=== PATIENT | female | born 1955 | race African-American/Black ===

== ENCOUNTER 2020-05-19 22:23 | Observation (INO) ==
[2020-05-19] MEDS ORDERED: EPINEPHrine 1 MG/ML VIAL IM ONE (22:39)
[2020-05-19] MEDS ORDERED: methylPREDNISolone 125 MG/2 ML VIAL IVP ONE (22:40)
[2020-05-19 23:01] LABS: Hematocrit 31.4 % (35.3-44.9); Hemoglobin 9.9 g/dL (11.5-15.4); Immature Granulocytes % 0.2 % (0-4); Lymphocytes % 48.1 %; Mean Corpuscular HGB Conc 31.5 g/dL (31.6-35.5); Mean Corpuscular Hemoglobin 29.9 pg (28.0-33.3); Mean Corpuscular Volume 94.9 fL (83.0-100.0); Mean Platelet Volume 10.4 fL (9.4-12.4); Platelet Count 153 K/mcL (140-400); Red Blood Count 3.31 M/mcL (3.82-4.97); Red Cell Distribution Width 13.2 % (11.5-14.5); Segmented Neutrophils % 39.5 %; White Blood Count 4.7 K/mcL (4.3-11.1)
[2020-05-19 23:02] LABS: Basophils % 0.9 %; Eosinophils # 0.1 K/mcL (0.0-0.6); Lymphocytes # 2.3 K/mcL (0.6-4.6); Monocytes # 0.4 K/mcL (0.0-1.3); Monocytes % 8.3 %; Neutrophils # 1.9 K/mcL (1.6-8.9)
[2020-05-19 23:24] LABS: Alanine Aminotransferase 14 Units/L (7-52); Albumin 3.8 g/dL (3.5-5.7); Albumin/Globulin Ratio 1.2 (1.1-2.2); Alkaline Phosphatase 43 Units/L (34-104); Aspartate Amino Transferase 22 Units/L (13-39); BUN/Creatinine Ratio 36 (6-26); Bilirubin,Direct 0.1 mg/dL (0.0-0.2); Bilirubin,Indirect 0.2 mg/dL (0.0-1.0); Bilirubin,Total 0.3 mg/dL (0.3-1.0); Blood Urea Nitrogen 35 mg/dL (8-23); Calcium 9.5 mg/dL (8.6-10.3); Carbon Dioxide 26 mEq/L (23-29); Chloride 104 mEq/L (98-107); Globulin 3.3 g/dL (2.4-3.5); Glucose 91 mg/dL (70-105); Magnesium 1.7 mg/dL (1.6-2.6); Osmolality,Calculated 292 (280-300); Potassium 4.5 mEq/L (3.5-5.1); Sodium 137 mEq/L (136-145); Total Protein 7.1 g/dL (6.4-8.9); Troponin I < 0.03 ng/mL (< 0.04); eGFR For African Americans > 60 (> 60); eGFR For Non-African Americans 59 (> 60)
[2020-05-20 00:42] LABS: Bilirubin,Urine Negative (Negative); Blood,Urine Negative (Negative); Clarity,Urine Clear (Clear); Color,Urine Colorless (Yellow); Glucose,Urine (UA) Normal (Normal); Ketones,Urine Negative (Negative); Leukocyte Esterase,Urine Negative (Negative); Nitrite,Urine Negative (Negative); Protein,Urine Negative (Neg-Trace); Specific Gravity,Urine 1.016 (1.010-1.025); Urobilinogen,Urine Normal (Normal)
[2020-05-20] MEDS ORDERED: Naloxone 0.4 MG/ML INJ IVP PRN (03:37)
[2020-05-20 05:13] LABS: Hematocrit 31.8 % (35.3-44.9); Mean Corpuscular HGB Conc 31.4 g/dL (31.6-35.5); Mean Corpuscular Volume 92.2 fL (83.0-100.0); Mean Platelet Volume 10.5 fL (9.4-12.4); Platelet Count 166 K/mcL (140-400); Red Blood Count 3.45 M/mcL (3.82-4.97); Red Cell Distribution Width 13.2 % (11.5-14.5); White Blood Count 4.6 K/mcL (4.3-11.1)
[2020-05-20 05:34] LABS: BUN/Creatinine Ratio 43 (6-26); Blood Urea Nitrogen 33 mg/dL (8-23); Calcium 9.6 mg/dL (8.6-10.3); Carbon Dioxide 24 mEq/L (23-29); Chloride 105 mEq/L (98-107); Glucose 120 mg/dL (70-105); Osmolality,Calculated 292 (280-300); Phosphorous 3.8 mg/dL (2.7-4.5); Potassium 4.4 mEq/L (3.5-5.1); Sodium 137 mEq/L (136-145); Troponin I < 0.03 ng/mL (< 0.04); eGFR For African Americans > 60 (> 60); eGFR For Non-African Americans > 60 (> 60)
[2020-05-20] MEDS ORDERED: Famotidine 20 MG/2 ML VIAL IVP ONE (05:50)
[2020-05-20] MEDS ORDERED: Artificial Tears SOLN 15 ML BOTTLE BOTH EYES PRN (07:29)
[2020-05-20] MEDS ORDERED: hydrOXYzine pamoate 25 MG CAPSULE PO PRN (07:29)
[2020-05-20] MEDS ORDERED: Nicotine 2 MG GUM BC PRN (07:29)
[2020-05-20] MEDS ORDERED: Acetaminophen 325 MG TABLET PO PRN (07:29)
[2020-05-20] MEDS ORDERED: *HR* LORazepam 1 MG TABLET PO PRN (07:29)
[2020-05-20] MEDS ORDERED: risperiDONE 0.25 MG TABLET PO PRN (07:29)
[2020-05-20] MEDS: clonazePAM 0.5 MG TABLET PO SCH (09:12)
[2020-05-20] MEDS: Nicotine 14 MG PATCH.TD24 TD SCH (09:12)
[2020-05-20] MEDS: clonazePAM 1 MG TABLET PO SCH (21:54)
[2020-05-20] MEDS: traZODone 50 MG TABLET PO SCH (22:44)
[2020-05-20] MEDS: Melatonin 3 MG TABLET PO SCH (22:44)
[2020-05-21] MEDS: clonazePAM 0.5 MG TABLET PO SCH (07:54)
[2020-05-21] MEDS: Nicotine 14 MG PATCH.TD24 TD SCH (07:54)
[2020-05-21] MEDS ORDERED: *HR* LORazepam 2 MG/ML VIAL IVP ONE (10:09)
[2020-05-21] MEDS: clonazePAM 1 MG TABLET PO SCH (17:39)
[2020-05-21 18:19] LABS: Adenovirus Not Detected (Not Detect); Bordetella Pertussis Not Detected (Not Detect); Chlamydophila pneumoniae Not Detected (Not Detect); Coronavirus 229E Not Detected (Not Detect); Coronavirus HKU1 Not Detected (Not Detect); Coronavirus NL63 Not Detected (Not Detect); Coronavirus OC43 Not Detected (Not Detect); Human Metapneumovirus Not Detected (Not Detect); Human Rhinovirus/Enterovirus Not Detected (Not Detect); Influenza A Subtype 2009 H1 Not Detected (Not Detect); Influenza B Not Detected (Not Detect); Mycoplasma pneumoniae Not Detected (Not Detect); Parainfluenza Virus 1 Not Detected (Not Detect); Parainfluenza Virus 2 Not Detected (Not Detect); Parainfluenza Virus 3 Not Detected (Not Detect); Parainfluenza Virus 4 Not Detected (Not Detect); Respiratory Syncytial Virus Not Detected (Not Detect)
[2020-05-21] MEDS: traZODone 50 MG TABLET PO SCH (21:46)
[2020-05-21] MEDS: Melatonin 3 MG TABLET PO SCH (21:46)
[2020-05-22] MEDS ORDERED: *HR* LORazepam 2 MG/ML VIAL IM ONE (00:32)
[2020-05-22] MEDS: clonazePAM 0.5 MG TABLET PO SCH (08:04)
[2020-05-22] MEDS: Nicotine 14 MG PATCH.TD24 TD SCH (08:07)
[2020-05-22 10:37] VITALS: BP 105/73
== END 2020-05-22 13:02 ==
LOC: 3ANU 22:23 → EMEROOARM 22:23 → SUATTDRO 05-20 02:31 → 3ANU 05-20 03:01
PROVIDERS: ADMIT Family Medicine; ATTEND Internal Medicine

== ENCOUNTER 2020-09-09 00:41 | Observation (INO) ==
[2020-09-09 01:31] LABS: Basophils % 0.8 %; Eosinophils # 0.2 K/mcL (0.0-0.6); Eosinophils % 5.2 %; Hematocrit 30.3 % (35.3-44.9); Hemoglobin 9.1 g/dL (11.5-15.4); Immature Granulocytes % 0.3 % (0-4); Lymphocytes # 1.7 K/mcL (0.6-4.6); Lymphocytes % 42.9 %; Mean Corpuscular Hemoglobin 28.3 pg (28.0-33.3); Mean Corpuscular Volume 94.4 fL (83.0-100.0); Mean Platelet Volume 10.2 fL (9.4-12.4); Monocytes # 0.4 K/mcL (0.0-1.3); Monocytes % 9.6 %; Neutrophils # 1.6 K/mcL (1.6-8.9); Platelet Count 170 K/mcL (140-400); Red Blood Count 3.21 M/mcL (3.82-4.97); Red Cell Distribution Width 13.6 % (11.5-14.5); Segmented Neutrophils % 41.2 %; White Blood Count 3.9 K/mcL (4.3-11.1)
[2020-09-09 01:38] LABS: Prothrombin Time 11.5 Seconds (9.4-12.1)
[2020-09-09 01:40] LABS: Activated Partial Thrombo Time 22.3 Seconds (26.0-36.0)
[2020-09-09 01:53] LABS: Alanine Aminotransferase 20 Units/L (7-52); Albumin 3.7 g/dL (3.5-5.7); Albumin/Globulin Ratio 1.1 (1.1-2.2); Alkaline Phosphatase 42 Units/L (34-104); Aspartate Amino Transferase 26 Units/L (13-39); BUN/Creatinine Ratio 33 (6-26); Bilirubin,Direct 0.1 mg/dL (0.0-0.2); Bilirubin,Indirect 0.3 mg/dL (0.0-1.0); Bilirubin,Total 0.4 mg/dL (0.3-1.0); Blood Urea Nitrogen 27 mg/dL (8-23); Calcium 9.4 mg/dL (8.6-10.3); Carbon Dioxide 30 mEq/L (23-29); Chloride 104 mEq/L (98-107); Globulin 3.3 g/dL (2.4-3.5); Glucose 88 mg/dL (70-105); Osmolality,Calculated 287 (280-300); Potassium 5.1 mEq/L (3.5-5.1); Sodium 136 mEq/L (136-145); Troponin I < 0.03 ng/mL (< 0.04); eGFR For African Americans > 60 (> 60); eGFR For Non-African Americans > 60 (> 60)
[2020-09-09] MEDS ORDERED: Naloxone 0.4 MG/ML INJ IVP PRN (04:24)
[2020-09-09] MEDS ORDERED: hydrOXYzine pamoate 25 MG CAPSULE PO PRN (05:05)
[2020-09-09] MEDS: MethylPREDNISolone 40 MG/ML VIAL IVP SCH ×2 (11:15→17:35)
[2020-09-09] MEDS: Famotidine 20 MG/2 ML VIAL IVP SCH (17:35)
[2020-09-10] MEDS: MethylPREDNISolone 40 MG/ML VIAL IVP SCH (05:30)
[2020-09-10] MEDS: Famotidine 20 MG/2 ML VIAL IVP SCH ×2 (05:33→17:43)
[2020-09-10 05:42] LABS: Hematocrit 30.9 % (35.3-44.9); Hemoglobin 9.6 g/dL (11.5-15.4); Immature Granulocytes % 0.3 % (0-4); Lymphocytes # 1.1 K/mcL (0.6-4.6); Lymphocytes % 36.5 %; Mean Corpuscular HGB Conc 31.1 g/dL (31.6-35.5); Mean Corpuscular Hemoglobin 28.9 pg (28.0-33.3); Mean Corpuscular Volume 93.1 fL (83.0-100.0); Mean Platelet Volume 10.1 fL (9.4-12.4); Monocytes # 0.3 K/mcL (0.0-1.3); Monocytes % 9.6 %; Neutrophils # 1.7 K/mcL (1.6-8.9); Platelet Count 162 K/mcL (140-400); Red Blood Count 3.32 M/mcL (3.82-4.97); Red Cell Distribution Width 13.6 % (11.5-14.5); Segmented Neutrophils % 53.6 %; White Blood Count 3.1 K/mcL (4.3-11.1)
[2020-09-10] MEDS ORDERED: Acetaminophen 325 MG TABLET PO PRN (06:24)
[2020-09-10] MEDS: risperiDONE 1 MG TABLET PO SCH ×2 (10:08→21:05)
[2020-09-10] MEDS: clonazePAM 0.5 MG TABLET PO SCH (10:08)
[2020-09-10 14:49] LABS: Adenovirus Not Detected (Not Detect); Coronavirus 229E Not Detected (Not Detect); Coronavirus HKU1 Not Detected (Not Detect); Coronavirus NL63 Not Detected (Not Detect); Coronavirus OC43 Not Detected (Not Detect); Human Metapneumovirus Not Detected (Not Detect); Human Rhinovirus/Enterovirus Not Detected (Not Detect); Influenza A Subtype 2009 H1 Not Detected (Not Detect); Influenza B Not Detected (Not Detect); SARS-CoV-2 Not Detected (Not Detect)
[2020-09-10 14:50] LABS: Bordetella Pertussis Not Detected (Not Detect); Chlamydophila pneumoniae Not Detected (Not Detect); Mycoplasma pneumoniae Not Detected (Not Detect); Parainfluenza Virus 1 Not Detected (Not Detect); Parainfluenza Virus 2 Not Detected (Not Detect); Parainfluenza Virus 3 Not Detected (Not Detect); Parainfluenza Virus 4 Not Detected (Not Detect); Respiratory Syncytial Virus Not Detected (Not Detect)
[2020-09-10] MEDS ORDERED: clonazePAM 1 MG TABLET PO SCH (18:00)
[2020-09-10] MEDS ORDERED: Melatonin 3 MG TABLET PO SCH (21:00)
[2020-09-10] MEDS ORDERED: traZODone 50 MG TABLET PO SCH (21:00)
[2020-09-11] MEDS: Famotidine 20 MG/2 ML VIAL IVP SCH (06:07)
[2020-09-11 08:26] VITALS: BP 94/64
[2020-09-11] MEDS ORDERED: Nicotine 14 MG PATCH.TD24 TD SCH (09:00)
[2020-09-11] MEDS ORDERED: predniSONE 20 MG TABLET PO SCH (09:00)
[2020-09-11] MEDS: risperiDONE 1 MG TABLET PO SCH (09:33)
[2020-09-11] MEDS: clonazePAM 0.5 MG TABLET PO SCH (09:33)
== END 2020-09-11 10:59 ==
LOC: 2ANU 00:41 → EMEROOARM 00:41 → SUATTDRO 03:01 → 2ANU 03:40
PROVIDERS: ADMIT Family Medicine; ATTEND Internal Medicine